=== PATIENT | female | born 1940 | race Caucasian/White ===

== ENCOUNTER 2018-01-07 11:48 | Day surgery (SDC) | payer MEDICARE, MEDICAID ==
[~2018-01-07] VITALS: Ht 154.9 cm; Wt 53.2 kg
--- NOTE | ~2018-01-07 | OP ---
PATIENT NAME: LANCE HALE MEDICAL RECORD: [id number] :40 LOCATION:ELDER ADMISSION DATE: SURGEON: JESSICA LAIRD MD DATE OF OPERATION: 01/07/2018 PROCEDURE: EGD with biopsy. REFERRING PHYSICIAN: Dr. Toan Herring. INDICATIONS: Ms. Hale is a delightful 77-year-old woman who has had symptoms of lower abdominal pain, intermittent diarrhea, and nausea. CT scan of the abdomen and pelvis with contrast 12/09/2017 showed findings suggestive of colitis and possible component of diverticulitis with some hazy increased density surrounding the descending colon and in the distal small bowel there were fluid-filled loops that were in the upper normal to mildly dilated. Her last colonoscopy was in July 2011 and showed moderate sigmoid diverticulosis and internal hemorrhoids. Her last EGD was June 2011 that shows small hiatal hernia, mild gastritis. She presents for outpatient EGD. PREMEDICATIONS: Total IV anesthesia (propofol 120 mg). INSTRUMENT: Olympus video gastroscope. PROCEDURE AND FINDINGS: After receiving informed consent, Ms. Hale's posterior pharynx was anesthetized with Cetacaine spray. She was placed in left lateral decubitus position, sedated as per anesthesia. After achieving an adequate level of sedation, gastroscope was introduced per orally and advanced in the duodenum without difficulty. The esophageal mucosa was without erythema, ulcers, strictures, masses, appeared normal to the GE junction. Small hiatal hernia was present. There was a fair amount of bilious fluid in the stomach, particularly in the prepyloric and antral region of the stomach. Frequent gastric peristaltic activity was noted. There was moderate patchy erythema in the antrum and prepyloric region and antral biopsies were obtained to rule out Helicobacter pylori. There were a few small polyps in the body of the stomach measuring 0.3 cm in size, which were biopsied. No lesions were seen in the cardia or fundus. Pylorus was patent and competent. Duodenal mucosa was without erythema or ulcers, appeared normal to the second portion. Biopsies were taken from the second portion of duodenum to rule out celiac disease. Gastroscope was then withdrawn. Ms. Hale tolerated the procedure well, no immediate complications. ASSESSMENT: 1. Small hiatal hernia. 2. Bilious gastritis. RECOMMENDATIONS: 1. Follow up histopathology. 2. Continue Dexilant 60 mg daily. 3. Would avoid trial of Carafate secondary to SULFA ALLERGY. 4. Colonoscopy as scheduled in January 2018. TRANSINT:[id number] Voice Confirmation ID: [id number] DOCUMENT ID: [id number] OPERATIVE REPORT [id number] LANCE HALE TERRI MD at 1254 CC: TOAN HERRING [id number] DICTATION DATE: 01/07/18 1448 UNIT DIRECTOR: 01/07/18 1520 [facility] 01/07/[address] [address]
[2018-01-07 12:19] LABS: HEMATOCRIT 30.3 % (36.0-48.0); HEMOGLOBIN 9.7 g/dL (12-16); MCV 87.6 fL (80.0-100.0); RBC 3.46 10x6/uL (4.00-5.40); WBC 6.8 10x3/uL (4.8-10.8)
[2018-01-07 12:57] LABS: ANION GAP 8.3 mmol/L (8-16); CARBON DIOXIDE 35.5 mmol/L (21.0-32.0); CREATININE - SERUM 1.9 mg/dL (0.6-1.3); POTASSIUM - SERUM 3.8 mmol/L (3.5-5.1)
[2018-01-07] MEDS ORDERED: LIPITOR20 MG PO (13:17)
[2018-01-07] MEDS ORDERED: COREG25 MG PO (13:17)
[2018-01-07] MEDS ORDERED: DEXILANT60 MG PO (13:18)
[2018-01-07] MEDS ORDERED: XALATAN 0.0052.5 ML (13:19)
[2018-01-07] MEDS ORDERED: PROCRIT/EP40000 UNIT SQ (13:19)
[2018-01-07] MEDS ORDERED: FUROSEMIDE20 MG PO (13:20)
[2018-01-07] MEDS ORDERED: HYDRALAZINE HC100 MG PO (13:21)
[2018-01-07] MEDS ORDERED: LEVO-T50 MCG PO (13:22)
[2018-01-07] MEDS ORDERED: PLAVIX75 MG PO (13:22)
[2018-01-07] MEDS ORDERED: TERAZOSIN HCL2 MG PO (13:23)
[2018-01-07] MEDS ORDERED: ULORIC40 MG PO (13:23)
[2018-01-07] MEDS ORDERED: AVAPRO150 MG PO (13:24)
[2018-01-07 13:31] VITALS: BP 198/75; Ht 154.9 cm; Wt 53.2 kg
== END 2018-01-07 15:45 | disposition home or self-care (01) ==
LOC: D.OPS 11:48
PROVIDERS: Anesthesiology
DX: R11.0 Nausea (principal); R10.30 Lower abdominal pain, unspecified; K21.0 Gastro-esophageal reflux disease with esophagitis

== ENCOUNTER 2018-02-20 10:54 | Day surgery (SDC) | payer MEDICARE, MEDICAID ==
[~2018-02-20] VITALS: Ht 154.9 cm; Wt 56.8 kg
--- NOTE | ~2018-02-20 | OP ---
PATIENT NAME: LANCE HALE MEDICAL RECORD: [id number] :40 LOCATION:ELDER ADMISSION DATE: SURGEON: JESSICA LAIRD MD DATE OF OPERATION: 02/20/2018 PROCEDURE: Colonoscopy with biopsy. INDICATIONS: Ms. Hale is a 77-year-old woman with history of diabetes, hypertension, and stage IV kidney disease, who presents for further evaluation of lower abdominal pain which started in February 2017. Typically, she will have a bowel movement every 1-2 days with some intermittent diarrhea. She had an EGD on 01/07/2018 that shows small hiatal hernia and bilious gastritis. Gastric biopsies were negative for H. pylori and duodenal biopsy showed no significant pathologic changes. Her last colonoscopy was in 07/31/2011 that showed moderate sigmoid diverticulosis and mild internal hemorrhoids. She has a history of iron-deficiency anemia and has been followed by Dr. Dejesus. She presents for outpatient colonoscopy. PREMEDICATIONS: Total IV anesthesia. INSTRUMENTS: Olympus video colonoscope pediatric and Olympus [id number]. PREMEDICATION: Propofol 500 mg (history of stage IV kidney disease). PROCEDURE AND FINDINGS: After informed consent, Ms. Hale was placed in left lateral decubitus position and she was sedated as per anesthesia. After achieving adequate level of sedation, digital rectal exam was performed that showed few external hemorrhoids, nonthrombosed. No fissures or fistulas. Normal sphincter tone. No palpable rectal masses. Colonoscope was introduced per rectally and advanced into the distal sigmoid colon. Secondary to the acute angle in the distal sigmoid colon, I was unable to advance the colonoscope further. The colonoscope was withdrawn and the EGD scope was used and advanced successfully to the sigmoid colon through to the cecum. The cecum, IC valve, and appendiceal orifice were identified and appeared normal. As the gastroscope was withdrawn, careful inspection was made of graves of the colon. Overall mucosa had a normal vascular and fold pattern. There was mild patchy erythema in the ascending colon. Biopsies were obtained to rule out microscopic colitis. There were multiple diverticula seen in the sigmoid colon of mixed sizes, some containing stool. Stool was collected from the colon for studies. Retroflexion in the rectum showed mild internal hemorrhoids. A [id number] prep was present. Ms. Hale tolerated the procedure well. No immediate complications. ASSESSMENT: 1. [id number] sigmoid diverticulosis. 2. Minimal nonspecific erythema involving ascending colon. Rule out microscopic colitis. 3. Mild internal hemorrhoids. 4. Lower abdominal pain, may be secondary to diverticular disease. RECOMMENDATIONS: 1. Follow up histopathology. 2. Daily Benefiber or Metamucil. 3. Colonoscopy as needed. 4. Stool to be sent for xTAG studies. OPERATIVE REPORT [id number] LANCE HALE TRANSINT:[id number] Voice Confirmation ID: [id number] DOCUMENT ID: [id number] JESSICA LIARD MD at 2003 CC: CARLOS DEJESUS MD [id number] DICTATION DATE: 02/20/18 1403 FACING CUTTING MACHINE OPERATOR: 02/20/18 1542 [facility] 02/20/18 [id number] [place] [address]
[~2018-02-20 10:54] MED LIST: AVAPRO150 MG PO; COREG25 MG PO; DEXILANT60 MG PO; FUROSEMIDE20 MG PO; HYDRALAZINE HC100 MG PO; LEVO-T50 MCG PO; LIPITOR20 MG PO; PLAVIX75 MG PO; PROCRIT/EP40000 UNIT SQ; TERAZOSIN HCL2 MG PO; ULORIC40 MG PO; XALATAN 0.0052.5 ML
[2018-02-20 11:14] LABS: BASOPHILS 0.7 % (0-2); EOSINOPHILS 1.2 % (0-7); HEMATOCRIT 30.2 % (36.0-48.0); IMMATURE GRANULOCYTES 0.2 % (0-5); MCH 30.7 pg (26.0-34.0); MCHC 33.1 g/dL (31.0-37.0); MCV 92.6 fL (80.0-100.0); MONOCYTES 4.6 % (2-11); NEUTROPHILS 67.3 % (40-80); PLATELET COUNT 158 10x3/uL (130-400); RBC 3.26 10x6/uL (4.00-5.40); WBC 4.2 10x3/uL (4.8-10.8)
[2018-02-20 11:33] LABS: ALBUMIN 3.8 g/dL (3.4-5.0); ANION GAP 12.4 mmol/L (8-16); BILIRUBIN - TOTAL 0.81 mg/dL (0.2-1.3); CALCIUM 9.3 mg/dL (8.5-10.1); CARBON DIOXIDE 30.4 mmol/L (21.0-32.0); CREATININE - SERUM 1.8 mg/dL (0.6-1.3); POTASSIUM - SERUM 3.8 mmol/L (3.5-5.1); PROTEIN - SERUM 7.2 g/dL (6.4-8.2)
[2018-02-20] MEDS ORDERED: COMBIGAN OPHT DR5 ML EACH EYE (11:52)
[2018-02-20 12:03] VITALS: BP 173/54; Ht 154.9 cm; Wt 56.8 kg
== END 2018-02-20 15:10 | disposition home or self-care (01) ==
LOC: D.OPS 10:54
PROVIDERS: Internal Medicine Gastroenterology
DX: K57.30 Diverticulosis of large intestine without perforation or abscess without bleeding (principal); K64.8 Other hemorrhoids; K52.9 Noninfective gastroenteritis and colitis, unspecified; E11.22 Type 2 diabetes mellitus with diabetic chronic kidney disease; I12.9 Hypertensive chronic kidney disease with stage 1 through stage 4 chronic kidney disease, or unspecified chronic kidney disease; N18.4 Chronic kidney disease, stage 4 (severe); Z01.812 Encounter for preprocedural laboratory examination

== ENCOUNTER → 2020-08-26 18:27 | Outpatient (CLI) | payer MEDICARE, MEDICAID ==
[2018-02-20 12:03] VITALS: BMI 23.6
[~2020-08-26 18:27] MED LIST changes: +ALBUTEROL SULF8.5 GM INH; +ASPIRIN EC325 MG PO; +CARDURA4 MG PO; +CLONIDINE1 EAC2 TOPICAL; +COMBIGAN OPHT DR5 ML EACH EYE; +FLORASTOR250 MG PO; +FLUTICASONE PRO16 GM NASAL; +FOLIC ACID1 MG PO; +HYDROCHLOROTHIA50 MG PO; +METHOTREXATE2.5 MG PO; +MIDAMOR5 MG PO; +MIRALAX17 GM PO; +MYLANTA / MAALO30 ML PO; +NORMODYNE / TR100 MG PO; +ROCALTROL0.25 MCG PO; +SINGULAIR10 MG PO; +ULORIC80 MG PO; +ULTRAM50 MG PO; +XALATAN 0.0052.5 ML EACH EYE
[2020-08-26 19:14] LABS: BASOPHILS 0.6 % (0-2); EOSINOPHILS 0.2 % (0-7); HEMATOCRIT 28.4 % (36.0-48.0); HEMOGLOBIN 9.2 g/dL (12-16); LYMPHOCYTES 17.6 % (15-50); MCH 29.5 pg (26.0-34.0); MCHC 32.3 g/dL (31.0-37.0); MCV 91.1 fL (80.0-100.0); MEAN PLATELET VOLUME 8.5 fL (7.4-10.4); MONOCYTES 8.7 % (2-11); NEUTROPHILS 72.9 % (40-80); RBC 3.11 10x6/uL (4.00-5.40); RDW 19.4 % (11.5-14.5)
[2020-08-26 19:16] LABS: PLATELET COUNT 254 10x3/uL (130-400)
[2020-08-26 20:00] LABS: ALBUMIN 1.7 g/dL (3.4-5.0); ANION GAP 11.8 mmol/L (8-16); BILIRUBIN - TOTAL 0.25 mg/dL (0.2-1.3); CALCIUM 7.7 mg/dL (8.5-10.1); CARBON DIOXIDE 26.8 mmol/L (21.0-32.0); CREATININE - SERUM 2.1 mg/dL (0.6-1.3); LDL-HDL RATIO 2.3 ratio (1.5-3.5); PROTEIN - SERUM 6.6 g/dL (6.4-8.2); THYROID STIMULATING HORMONE 9.48 uIU/mL (0.36-3.74)
[2020-08-26 20:11] LABS: POTASSIUM - SERUM 6.6 mmol/L (3.5-5.1)
== END | disposition home or self-care (01) ==
LOC: D.LABREF 18:27
PROVIDERS: ATTEND Family Medicine
DX: E11.29 Type 2 diabetes mellitus with other diabetic kidney complication (principal); D64.9 Anemia, unspecified; I10 Essential (primary) hypertension; E03.9 Hypothyroidism, unspecified

== ENCOUNTER 2020-08-26 21:52 | Inpatient (IN) | payer MEDICARE, MEDICAID ==
[~2020-08-26] VITALS: Ht 154.9 cm; Wt 63.0 kg
[~2020-08-26 21:52] MED LIST changes: -ALBUTEROL SULF8.5 GM INH; -ASPIRIN EC325 MG PO; -CARDURA4 MG PO; -CLONIDINE1 EAC2 TOPICAL; -FLORASTOR250 MG PO; -FLUTICASONE PRO16 GM NASAL; -FOLIC ACID1 MG PO; -HYDROCHLOROTHIA50 MG PO; -METHOTREXATE2.5 MG PO; -MIDAMOR5 MG PO; -MIRALAX17 GM PO; -MYLANTA / MAALO30 ML PO; -NORMODYNE / TR100 MG PO; -ROCALTROL0.25 MCG PO; -SINGULAIR10 MG PO; -ULORIC80 MG PO; -ULTRAM50 MG PO; -XALATAN 0.0052.5 ML EACH EYE
[2020-08-26 22:46] LABS: BASOPHILS 0.4 % (0-2); EOSINOPHILS 0.1 % (0-7); HEMATOCRIT 26.1 % (36.0-48.0); HEMOGLOBIN 8.7 g/dL (12-16); LYMPHOCYTES 18.2 % (15-50); MCH 30.1 pg (26.0-34.0); MCHC 33.2 g/dL (31.0-37.0); MCV 90.5 fL (80.0-100.0); MEAN PLATELET VOLUME 7.6 fL (7.4-10.4); MONOCYTES 9.7 % (2-11); NEUTROPHILS 71.6 % (40-80); PLATELET COUNT 262 10x3/uL (130-400); RBC 2.88 10x6/uL (4.00-5.40); RDW 19.2 % (11.5-14.5); WBC 9.9 10x3/uL (4.8-10.8)
[2020-08-26 23:00] LABS: ALBUMIN 1.6 g/dL (3.4-5.0); BILIRUBIN - TOTAL 0.42 mg/dL (0.2-1.3); CALCIUM 7.9 mg/dL (8.5-10.1); CARBON DIOXIDE 26.9 mmol/L (21.0-32.0); CREATININE - SERUM 2.1 mg/dL (0.6-1.3); PROTEIN - SERUM 6.6 g/dL (6.4-8.2)
[2020-08-26 23:01] LABS: ANION GAP 9.4 mmol/L (8-16); POTASSIUM - SERUM 6.3 mmol/L (3.5-5.1)
[2020-08-27] MEDS ORDERED: ALBUTEROL SULF8.5 GM INH (02:02)
[2020-08-27] MEDS ORDERED: MIDAMOR5 MG PO (02:06)
[2020-08-27] MEDS ORDERED: ASPIRIN EC325 MG PO (02:09)
[2020-08-27] MEDS ORDERED: ROCALTROL0.25 MCG PO (02:13)
[2020-08-27] MEDS ORDERED: CLONIDINE1 EAC2 TOPICAL (02:18)
[2020-08-27] MEDS ORDERED: CARDURA4 MG PO (02:21)
[2020-08-27] MEDS ORDERED: FLUTICASONE PRO16 GM NASAL (02:23)
[2020-08-27] MEDS ORDERED: FLORASTOR250 MG PO (02:24)
[2020-08-27] MEDS ORDERED: FOLIC ACID1 MG PO (02:28)
[2020-08-27] MEDS ORDERED: HYDROCHLOROTHIA50 MG PO (03:26)
[2020-08-27] MEDS ORDERED: NORMODYNE / TR100 MG PO (03:26)
[2020-08-27] MEDS ORDERED: METHOTREXATE2.5 MG PO (03:30)
[2020-08-27] MEDS ORDERED: SINGULAIR10 MG PO (03:31)
[2020-08-27] MEDS ORDERED: MYLANTA / MAALO30 ML PO (03:32)
[2020-08-27] MEDS ORDERED: MIRALAX17 GM PO (03:33)
[2020-08-27] MEDS ORDERED: ULTRAM50 MG PO (03:35)
[2020-08-27] MEDS ORDERED: XALATAN 0.0052.5 ML EACH EYE (03:36)
[2020-08-27] MEDS ORDERED: ULORIC80 MG PO (03:36)
[2020-08-27 05:21] VITALS: BP 170/60
[2020-08-27 06:19] VITALS: BP 170/60; BMI 26.3
[2020-08-27 06:22] LABS: BASOPHILS 0.6 % (0-2); EOSINOPHILS 0.1 % (0-7); HEMATOCRIT 25.5 % (36.0-48.0); HEMOGLOBIN 8.5 g/dL (12-16); LYMPHOCYTES 19.8 % (15-50); MCH 30.3 pg (26.0-34.0); MCHC 33.4 g/dL (31.0-37.0); MCV 90.8 fL (80.0-100.0); MEAN PLATELET VOLUME 7.8 fL (7.4-10.4); MONOCYTES 10.3 % (2-11); NEUTROPHILS 69.2 % (40-80); PLATELET COUNT 264 10x3/uL (130-400); RDW 18.7 % (11.5-14.5); WBC 8.6 10x3/uL (4.8-10.8)
[2020-08-27 06:43] LABS: CALCIUM 8.2 mg/dL (8.5-10.1); CARBON DIOXIDE 25.5 mmol/L (21.0-32.0); CHLORIDE - SERUM 102 mmol/L (98-107); CKMB 0.2 U/L (0.0-3.6); CREATINE KINASE 9 UL (21-215); CREATININE - SERUM 2.1 mg/dL (0.6-1.3); MAGNESIUM - SERUM 1.4 mg/dL (1.8-2.4); PHOSPHOROUS 3.9 mg/dL (2.5-4.9); SODIUM 132 mmol/L (136-145); UREA NITROGEN 65 mg/dL (7-18); eGFR NON AFRICAN AMERICAN 24 mL/min (90-120)
[2020-08-27 07:12] LABS: CALC OSMOLALITY 281 mosm/kg (275-300); GLUCOSE 63 mg/dL (74-106); POTASSIUM - SERUM 6.2 mmol/L (3.5-5.1)
--- NOTE | 2020-08-27 08:09 | NUR ---
650MG OF TYLENOL GIVEN FOR PAIN LEVEL OF 10/10. PT A/O X3. RESP EVEN AND NONLABORED ON RA. RT UPPER ARM IV SL. SR-68 ON TELE. PT DENIES ANY OTHER NEEDS AT THIS TIME. CALL LIGHT IN REACH, WILL CONTINUE PLAN OF CARE.
[2020-08-27 08:38] VITALS: BP 170/61
[2020-08-27 12:03] VITALS: BP 121/50
[2020-08-27 14:34] LABS: ANION GAP 7.6 mmol/L (8-16); CALCIUM 8.2 mg/dL (8.5-10.1); CARBON DIOXIDE 26.6 mmol/L (21.0-32.0); CREATININE - SERUM 2.2 mg/dL (0.6-1.3)
[2020-08-27 14:43] LABS: POTASSIUM - SERUM 6.2 mmol/L (3.5-5.1)
--- NOTE | 2020-08-27 15:31 | NUR ---
CALLED CHANEL HOOD REGARDING K OF 6.2, NEW ORDER TO GIVE 10G OF LOKELMA ONE TIME DOSE AND RECHECK PT'S K IN 4HRS.
[2020-08-27 16:04] VITALS: BP 120/59
--- NOTE | 2020-08-27 16:04 | NUR ---
CLEANED PT UP FROM BM INCONT EPISODE. PT CRYING OUT THAT SHE IS IN PAIN TO ABD AND BACK. ONLY HAS TYLENOL AND ITS NOT HELPING. EVERY TIME PT IS REPOSITIONED IN THE BED SHE CRIES OUT IN PAIN. PT'S DAUGHTER STATES THAT SHE WAS GETTING MOPRHINE AND TRAMADOL AT THE RETIREMENT FOR PAIN. WILL PAGE DR. BARRIOS TO SEE IF PT CAN HAVE ANYTHING STRONGER.
--- NOTE | 2020-08-27 17:45 | NUR ---
WENT TO TRY TO DO IN/OUT CATH ON PT. PT HAD ALREADY GONE AND ALSO HAD BM. CLEANED PT UP FROM INCONT EPISODE, WILL PASS ON IN REPORT THAT STILL NEED URINE SAMPLE. REPOSITIONED PT IN BED, PT DENIES ANY OTHER NEEDS AT THIS TIME. CALL LIGHT IN REACH.
--- NOTE | 2020-08-27 19:46 | NUR ---
RECEIVED REPORT, WILL ASSUME CARE OF PT, PREACHER IN ROOM READING SCRIP TO PT, DENIES ANY NEEDS AT THIS TIME, BED IS LOW, SRX2, CALL LIGHT IN REACH, WILL CONTINUE PLAN OF CARE
[2020-08-27 20:00] VITALS: BP 143/57
--- NOTE | 2020-08-27 21:45 | NUR ---
PAGED CHANEL NAGEL TO LET HER KNOW K+6.0, WAITING ROADS SUPERVISOR BACK
--- NOTE | 2020-08-28 03:28 | NUR ---
I have reviewed this patient and I concur with the Shift Assessment completed by the Licensed Practical Nurse today this shift.
[2020-08-28 06:28] LABS: BASOPHILS 0.4 % (0-2); EOSINOPHILS 0.4 % (0-7); HEMATOCRIT 24.4 % (36.0-48.0); HEMOGLOBIN 8.1 g/dL (12-16); LYMPHOCYTES 21.6 % (15-50); MCHC 33.1 g/dL (31.0-37.0); MCV 90.7 fL (80.0-100.0); MEAN PLATELET VOLUME 7.9 fL (7.4-10.4); NEUTROPHILS 67.6 % (40-80); PLATELET COUNT 255 10x3/uL (130-400); RBC 2.69 10x6/uL (4.00-5.40); WBC 8.3 10x3/uL (4.8-10.8)
[2020-08-28 06:50] LABS: ANION GAP 10.7 mmol/L (8-16); CALCIUM 8.2 mg/dL (8.5-10.1); CARBON DIOXIDE 25.3 mmol/L (21.0-32.0); CREATININE - SERUM 2.3 mg/dL (0.6-1.3)
[2020-08-28 08:13] VITALS: BP 195/82
--- NOTE | 2020-08-28 10:50 | NUR ---
CLEANED PT UP FROM INCONT EPISODE. RESPOSITIONED PT IN BED, ALL NEEDS MET, CALL LIGHT IN REACH.
[2020-08-28 12:00] VITALS: BP 176/72
[2020-08-28 13:02] VITALS: BP 191/72
--- NOTE | 2020-08-28 15:09 | NUR ---
ULTRAM GIVEN FOR PAIN LEVEL OF 10/10. PT DENIES ANY OTHER NEEDS AT THIS TIME. CALL LIGHT IN REACH.
[2020-08-28 16:00] VITALS: BP 123/69
--- NOTE | 2020-08-28 16:30 | NUR ---
PT'S QUINN WANTED TO SPEAK WITH THIS NURSE, WHEN OVER PLAN OF CARE WITH HER. PT'S QUINN VERY UPSET BECAUSE THIS NURSE DOES NOT HAVE THE RECORDS FROM [facility] FROM PT'S LAST ADMISSION THERE. EXPLAINED TO HER THAT THE DOCTOR WOULD HAVE TO REQUEST FOR THE MEDICAL RECORDS FROM [facility] IF HE FELT LIKE HE NEEDED TO SEE THEM. EXPLAINED TO HER THAT DR. NELSON WAS THE RENAL DOCTOR THAT WAS SEEING PT AT [facility] LAST WEEK, THAT HE IS AWARE OF WHAT MEDICATIONS THE PT WAS TAKING. QUINN IS ALSO WOUNDERING WHY THE DOCTORS HAVE NOT STARTED PT ON THE MEDICATIONS THAT SHE WAS GETTING AT [facility] THAT WERE WORKING TO CONTROL HER BLOOD PRESSURE AND K LEVELS. TRIED TO EXPLAINED TO HER THAT THE RENAL DOCTOR HAS MADE SOME CHANGES TO THE PT'S MEDICATIONS BECAUSE OF HER NOW HIGH K AND HIGH BP. QUINN STARTED HOLLERING STATING THAT SHE IS VERY UPSET THAT ITS SO HARD TO GET MEDICAL RECORDS FROM [facility]. PT ALSO STATING THAT WHEN SHE WALKED IN TO HER GRANDMOTHERS ROOM THAT PT WAS STARING INTO SPACE DID NOT EVEN ACKNOWLEGED THAT SHE WAS IN THE ROOM. THAT PT HAD ALSO BEEN LAYING IN PEE FOR GOD KNOWS HOW LONG. EXPLAINED TO HER THAT THIS NURSE AND SHEETMETAL PATTERNMAKER HAVE BEEN CHECKING ON PT OFTEN AND THAT PT IS ALSO GETTING A DIURETIC SO SHE IS CONSTANTLY URINATING AND STAFF HAS CLEANED HER UP MULTIPLE TIMES TODAY. AFTER I TRIED TO EXPLAINED MULTIPLE TIMES THE PLAN OF CARE AND WHY WE DONT HAVE THE RECORDS FROM [facility], PT'S QUINN WALKED OFF AND WENT BACK TO PT'S ROOM. THEN CAME BACK OUT, ASKING WHEN WAS THE LAST TIME THAT PT HAD A SHOWER. CON PEREZ TO EXPLAINED TO PT'S DAUGHTER THAT HER AND THE OTHER SHEETMETAL PATTERNMAKER HAD JUST CLEANED PT UP FROM INCONT EPISODE AND GAVE HER A COMPLETE BED BATH AND LINEN CHANGE. THEN QUINN STATED "NO, WHEN WAS THE LAST TIME THAT SHE HAD AN ACTUAL SHOWER, EXPLAINED TO HER THAT THE STAFF HAS NOT GOTTEN PT UP BECAUSE PT IS TOO WEAK AND C/O PAIN EVERYWHERE ANY TIME SHE IS MOVED. EXPLAINED TO HER THAT PHYSICAL THERAPY ASSESSED HER TODAY AND WILL START WORKING WITH HER TOMORROW AND THEN WE WILL SEE HOW SHE DOES AND CAN GET HER IN THE SHOWER IF WE FEEL LIKE IS SAVE. THEN GRANDDAUGHTER WENT TO SAY " SO YALL JUST MAKE PT'S BEDRIDEN AND MAKE THEM WEAKER. STATED THAT SHE WAS GOING TO FILE A COMPLAINT. AFTER THAT THIS NURSE AND SHEETMETAL PATTERNMAKER WENT INTO PT'S ROOM TO TRY AND GET HER INTO THE SHOWER AND GOT PT ALL THE WAY TO THE SHOWER AND PT WAS TO WEAK TO MAKE IT ALL THE WAY IN THE SHOWER OR BACK TO BE. HAD TO GET HELP TO LIFT PT BACK TO BED X3 ASSIST.
[2020-08-28 20:00] VITALS: BP 159/58
[2020-08-29 00:13] VITALS: BP 180/64
[2020-08-29 04:00] VITALS: BP 167/75
[2020-08-29 06:45] LABS: BASOPHILS 0.6 % (0-2); EOSINOPHILS 0.4 % (0-7); HEMATOCRIT 23.4 % (36.0-48.0); HEMOGLOBIN 7.8 g/dL (12-16); LYMPHOCYTES 26.9 % (15-50); MCH 30.2 pg (26.0-34.0); MCHC 33.4 g/dL (31.0-37.0); MCV 90.6 fL (80.0-100.0); MEAN PLATELET VOLUME 7.7 fL (7.4-10.4); MONOCYTES 10.9 % (2-11); NEUTROPHILS 61.2 % (40-80); PLATELET COUNT 272 10x3/uL (130-400); RBC 2.59 10x6/uL (4.00-5.40); RDW 18.9 % (11.5-14.5)
[2020-08-29 06:53] LABS: INR 1.18 (0.85-1.17); PROTIME 13.9 SECONDS (11.6-15.0)
[2020-08-29 07:06] LABS: ALBUMIN 1.6 g/dL (3.4-5.0); ANION GAP 10.3 mmol/L (8-16); BILIRUBIN - DIRECT 0.14 mg/dL (0.00-0.30); BILIRUBIN - INDIRECT 0.27 mg/dL (0.00-1.00); BILIRUBIN - TOTAL 0.41 mg/dL (0.2-1.3); CALCIUM 8.2 mg/dL (8.5-10.1); CARBON DIOXIDE 27.5 mmol/L (21.0-32.0); CREATININE - SERUM 2.2 mg/dL (0.6-1.3); POTASSIUM - SERUM 5.8 mmol/L (3.5-5.1); PROTEIN - SERUM 6.7 g/dL (6.4-8.2)
--- NOTE | 2020-08-29 09:28 | NUR ---
AM MEDS GIVEN AT THIS TIME. PT A/O X3, RESP EVEN AND NONLABORED ON RA. DENIES ANY PAIN AT THIS TIME. CHECKED PT FOR ANY INCONT EPISODES, PT WAS DRY. PUREWICK IN PLACED, EMPTIED 600CC OF YELLOW URINE. SCDS REMOVED AND ACCESSED PT LEGS. REPOSITIONED PT IN BED, ALSO ASKED PT WHAT SHE WATED TO EAT FOR BREAKFAST SINCE SHE HAD NOT TOUCHED HER EGGS, SAUSAGE, PANCAKE THAT SHE WAS SERVED. PT STATED OATMEAL AND TOAST. PUT ORDER IN. PT DENIES ANY OTHER NEED AT THIS TIME. CALL LIGHT IN REACH, WILL CONTINUE PLAN OF CARE.
--- NOTE | 2020-08-29 09:55 | NUR ---
GAVE 50MG OF TRAMADOL FOR PAIN LEVEL OF 10/10. ALSO REPOSITIONED PT IN BED, REMOVED SCDS AT THIS TIME. PT C/O PAIN TO LEGS. CHECKED FOR ANY INCONT EPISODES, PT COMPLETELY DRIED, PUREWICK IN PLACE. CALL LIGHT IN REACH.
--- NOTE | 2020-08-29 10:38 | NUR ---
MEPELEX DRESSING APPLIED TO COCCYX. REPOSITIONED PT TO LT SIDE. DOES NOT LIKE TO BE ON RIGHT SIDE, STATES IT MAKES BUT HURT MORE WHEN SHE LAYS ON HER RIGHT SIDE. ALL NEEDS MET, CALL LIGHT IN REACH.
[2020-08-29 11:07] LABS: CREATININE - URINE 14.1 mg/dL (30-125); PRO/CRE RATIO URINE 2.3 mg/g
[2020-08-29 11:13] LABS: BILIRUBIN NEGATIVE (NEGATIVE); KETONE NEGATIVE (NEGATIVE); NITRITE NEGATIVE (NEGATIVE); SQUAMOUS EPITHELIAL RARE HPF (0-4); UROBILINOGEN NORMAL mg/dL (< 2); WHITE CELLS - URINE 0-5 HPF (0-4)
[2020-08-29 12:50] VITALS: BP 162/61
--- NOTE | 2020-08-29 14:24 | NUR ---
RT UPPER ARM IV, LEAKING WHEN FLUSHED. D/C WITH CATHETER TIP INTACT. NEW 22G STARTED TO RT WRIST X2 STICKS, PT TOLERARED WELL, ALSO GAVE 650MG OF TYLENOL FOR PAIN LEVEL OF 10/10. PT'S PADS DRY NO INCONT EPISODE NOTED, PUREWICK IN PLACE. CALL LIGHT IN REACH.
--- NOTE | 2020-08-29 15:49 | NUR ---
CALLED ANGIE GENAO AND INFORMED HER THAT DR. BARRIOS WANTED TO KNOW IF THE WANTED PT GET TRANFUSION FOR HGB OF 7.8. PER ANGIE GENAO ROOFER HELPER NOT TODAY CHECK IRON LEVELS, TIBC PANEL, FERRITIN, FOLATE, AND B-12. ALSO ORDER FOR PROCRIT 8000UNITS SUB Q48HRS.
--- NOTE | 2020-08-29 16:10 | NUR ---
50MG OF TRAMADOL GIVEN FOR PAIN LEVEL OF 10/10. TALKED TO PT'S SISTER AND UPDATED HER ON PT'S CONDITION. PT DENIES ANY OTHER NEEDS AT THIS TIME. CALL LIGHT IN REACH.
[2020-08-29 16:18] VITALS: BP 182/67
--- NOTE | 2020-08-29 18:29 | NUR ---
CHECKED PT FOR INCONT EPISODE, PT IS DRY, PUREWICK IN PLACE, REPOSITIONED PT IN BED, PT STILL REFUSING TO EAT HER DINNER, LEFT TRAY ON BEDSIDE TABLE JUST IN CASE PT WANTS TO EAT LATER ON. CALL LIGHT IN REACH.
[2020-08-29 20:00] VITALS: BP 149/60
[2020-08-30] VITALS: BP 130/55
--- NOTE | 2020-08-30 03:17 | NUR ---
I have reviewed this patient and I concur with the Shift Assessment completed by the Licensed Practical Nurse today this shift.
[2020-08-30 04:00] VITALS: BP 147/60
[2020-08-30 06:29] LABS: BASOPHILS 0.8 % (0-2); EOSINOPHILS 0.3 % (0-7); HEMATOCRIT 24.4 % (36.0-48.0); LYMPHOCYTES 24.5 % (15-50); MCH 29.8 pg (26.0-34.0); MCHC 32.9 g/dL (31.0-37.0); MCV 90.6 fL (80.0-100.0); MEAN PLATELET VOLUME 7.5 fL (7.4-10.4); MONOCYTES 9.5 % (2-11); NEUTROPHILS 64.9 % (40-80); PLATELET COUNT 309 10x3/uL (130-400); RBC 2.69 10x6/uL (4.00-5.40); RDW 18.5 % (11.5-14.5); WBC 8.3 10x3/uL (4.8-10.8)
[2020-08-30 06:53] LABS: % SATURATION 16 % (15-55); IRON 12 ug/dl (35-150); TOTAL IRON BIND CAPACITY 73 ug/dl (260-445); UNSAT IRON BIND CAPACITY 61 ug/dl (150-375)
[2020-08-30 07:09] LABS: CALC OSMOLALITY 283 mosm/kg (275-300); CALCIUM 8.2 mg/dL (8.5-10.1); CARBON DIOXIDE 29.9 mmol/L (21.0-32.0); CHLORIDE - SERUM 98 mmol/L (98-107); CREATININE - SERUM 2.5 mg/dL (0.6-1.3); FERRITIN 458 ng/mL (3-244); GLUCOSE 93 mg/dL (74-106); POTASSIUM - SERUM 4.8 mmol/L (3.5-5.1); SODIUM 133 mmol/L (136-145); UREA NITROGEN 63 mg/dL (7-18); eGFR NON AFRICAN AMERICAN 20 mL/min (90-120)
[2020-08-30 08:14] VITALS: BP 154/67
[2020-08-30 11:37] VITALS: BP 125/57
[2020-08-30 12:41] VITALS: Ht 154.9 cm; Wt 63.0 kg
--- NOTE | 2020-08-30 15:52 | NUR ---
DR BARRIOS NOTIFIED OF BRUCED AND SWOLLEN ANKLE. X-RAY ORDERED. DR BARRIOS ALSO NOTIFIED THAT HER SISTER RHONDA WANTS TO SPEAK TO HIM. PHONE # [phone].
[2020-08-30 16:00] VITALS: BP 131/53
--- NOTE | 2020-08-30 19:50 | NUR ---
CAREGIVER AT BED SIDE, HAS MULTIPLE QUESTIONS IN REGARDS TO PTS CONDITION AND CARE. CAREGIVER ON PHONE WITH PTS DAUGHTER WELL. CAREGIVER ASKS WHY PT WAS NOT ADMITTED TO [facility] WHEN THAT IS WHERE PT HAD,HAD HER ABD SURGERY, EXPLAINED THAT I DO NOT HAVE THAT ANSWER FOR HER, THAT DECISION WAS MADE BY ANDREW BUNDY OR THE BACK ROLLER. PT COMPLAINS OF PAIN TO HER BACK AND HIPS, PTS FAMILY ON PHONE ASKS IF PT HAS FALLEN, THIS NURSE INFORMED FAMILY THAT TO MY KNOWLEDGE AND THE NURSE FROM PREVIOUS [facility] DAY [facility]IF[facility] WERE INFORMED THAT PT HAD FALLEN PRIOR TO THE ADMIT TO [facility], BUT WERE NOT INFORMED OF WHERE THE FALL HAD HAPPENED. INFORMED FAMILY AND CAREGIVER THAT I WILL SEE IF WE CAN AN XRAY OF PTS HIPS AND PELVIS.
[2020-08-30 20:00] VITALS: BP 154/59
--- NOTE | 2020-08-30 20:25 | NUR ---
BUNCHER OPERATOR AT BED SIDE.
[2020-08-31] VITALS: BP 143/56
--- NOTE | 2020-08-31 00:52 | NUR ---
I have reviewed this patient and I concur with the Shift Assessment completed by the Licensed Practical Nurse today this shift.
--- NOTE | 2020-08-31 01:52 | NUR ---
RESTING WITH EYES CLOSED. RESPERATIONS EVEN, NO S/S DISTRESS NOTED.
[2020-08-31 04:00] VITALS: BP 171/69
[2020-08-31 06:11] LABS: BASOPHILS 0.6 % (0-2); EOSINOPHILS 0.7 % (0-7); LYMPHOCYTES 25.4 % (15-50); MCH 29.8 pg (26.0-34.0); MCHC 33.3 g/dL (31.0-37.0); MCV 89.5 fL (80.0-100.0); MEAN PLATELET VOLUME 7.5 fL (7.4-10.4); MONOCYTES 5.9 % (2-11); NEUTROPHILS 67.4 % (40-80); PLATELET COUNT 316 10x3/uL (130-400); RBC 2.68 10x6/uL (4.00-5.40); RDW 18.6 % (11.5-14.5); WBC 8.4 10x3/uL (4.8-10.8)
[2020-08-31 06:26] LABS: ANION GAP 9.5 mmol/L (8-16); CALCIUM 8.1 mg/dL (8.5-10.1); CARBON DIOXIDE 30.9 mmol/L (21.0-32.0); CREATININE - SERUM 2.6 mg/dL (0.6-1.3); POTASSIUM - SERUM 4.4 mmol/L (3.5-5.1)
[2020-08-31 07:33] VITALS: BP 177/61
[2020-08-31 10:22] VITALS: BP 137/59
[2020-08-31 15:15] VITALS: BP 133/56
[2020-08-31 20:00] VITALS: BP 145/65
[2020-09-01] VITALS: BP 111/40
--- NOTE | 2020-09-01 00:22 | NUR ---
RESTING WITH EYES CLOSED, NO S/S DISTRESS NOTED.
--- NOTE | 2020-09-01 01:32 | NUR ---
I have reviewed this patient and I concur with the Shift Assessment completed by the Licensed Practical Nurse today this shift.
[2020-09-01 05:38] VITALS: BP 150/63
[2020-09-01 07:28] LABS: EOSINOPHILS 0.7 % (0-7); HEMATOCRIT 23.7 % (36.0-48.0); HEMOGLOBIN 7.9 g/dL (12-16); LYMPHOCYTES 28.6 % (15-50); MCH 29.9 pg (26.0-34.0); MCHC 33.4 g/dL (31.0-37.0); MCV 89.5 fL (80.0-100.0); MEAN PLATELET VOLUME 7.5 fL (7.4-10.4); MONOCYTES 4.2 % (2-11); NEUTROPHILS 65.5 % (40-80); PLATELET COUNT 326 10x3/uL (130-400); RBC 2.65 10x6/uL (4.00-5.40); RDW 18.5 % (11.5-14.5); WBC 6.9 10x3/uL (4.8-10.8)
[2020-09-01 07:40] LABS: ANION GAP 10.7 mmol/L (8-16); CREATININE - SERUM 2.5 mg/dL (0.6-1.3); POTASSIUM - SERUM 4.7 mmol/L (3.5-5.1)
[2020-09-01 08:50] VITALS: BP 168/78
[2020-09-01 11:00] VITALS: BP 151/61
--- NOTE | 2020-09-01 13:16 | NUR ---
Nutrition Follow-up: Pt confused. Observed not much breakfast eaten this AM, although noted open Glucerna on tray. Nursing reports stage 3 PU on coccyx. Diet: Renal, Carb Consistent, Mech Soft PO intake: 30% avg x 5 meals (08/29-08/30) No new wt; last wt: 139# (08/30) Labs noted: Na 133, K+ 4.7, BUN 66, Cre 2.5, GFR 20, Glu 86, Ca 8.0 Meds noted: Calcitriol, Protonix, Florastor, Folate, Miralax -Encourage PO intake and honor food preferences within diet restrictions. -+Nepro with meals. -Need new wt. -RD follow-up: 09/05
[2020-09-01 15:30] VITALS: BP 154/65
[2020-09-01 21:34] VITALS: BP 174/71
--- NOTE | 2020-09-02 03:13 | NUR ---
I have reviewed this patient and I concur with the Shift Assessment completed by the Licensed Practical Nurse today this shift.
[2020-09-02 05:11] VITALS: BP 123/65
[2020-09-02 06:59] LABS: BASOPHILS 0.7 % (0-2); EOSINOPHILS 0.8 % (0-7); HEMATOCRIT 23.2 % (36.0-48.0); HEMOGLOBIN 7.7 g/dL (12-16); LYMPHOCYTES 32.9 % (15-50); MCH 29.9 pg (26.0-34.0); MCHC 33.3 g/dL (31.0-37.0); MCV 89.9 fL (80.0-100.0); MEAN PLATELET VOLUME 7.4 fL (7.4-10.4); MONOCYTES 4.4 % (2-11); NEUTROPHILS 61.2 % (40-80); PLATELET COUNT 317 10x3/uL (130-400); RBC 2.58 10x6/uL (4.00-5.40); RDW 18.2 % (11.5-14.5); WBC 6.1 10x3/uL (4.8-10.8)
--- NOTE | 2020-09-02 07:16 | NUR ---
RECEIVED BEDSIDE REPORT PATIENT AWAKE AND CONFUSED. NO SHORTNESS OF BREATH, ON ROOM AIR. IV TO LEFT WRIST SL.
[2020-09-02 07:38] LABS: ANION GAP 10.8 mmol/L (8-16); CALCIUM 8.3 mg/dL (8.5-10.1); CARBON DIOXIDE 28.7 mmol/L (21.0-32.0); CREATININE - SERUM 2.4 mg/dL (0.6-1.3); POTASSIUM - SERUM 4.5 mmol/L (3.5-5.1)
[2020-09-02 07:50] VITALS: BP 157/68
--- NOTE | 2020-09-02 08:30 | NUR ---
PATIENT AWAKE AND ALERT AND CONFUSED. NO CURRENT PAIN OR DISTRESS NOTED AT THIS TIME. RESP EVEN AND UNLABORED ON ROOM AIR SATS AT99. HEART SOUNDS REGULAR RATE AND RYTHYM. ABDOMINAL INCISION HEALED. 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 INCONTINENT OF BOWEL AND BLADDER. APPETITE DECREASED. PATIENT IS FALL RISK.
[2020-09-02 10:55] VITALS: BP 184/71
[2020-09-02] MEDS ORDERED: HYDRALAZINE HCL50 MG PO (12:15)
[2020-09-02] MEDS ORDERED: TORSEMIDE20 MG PO (12:16)
--- NOTE | 2020-09-02 12:38 | NUR ---
I have reviewed this patient and I concur with the Shift Assessment completed by the Licensed Practical Nurse today this shift.
--- NOTE | 2020-09-02 20:00 | NUR ---
INITIAL ROUNDS AND ASSESSMENT COMPLETED. PT HAS JOSUÉ BUT BED IS WET. CARE PROVIDED. LINENS CHANGED. JOSUÉ RESITUATED. PT ALERT/ORIENTED AND INFORMED THAT HER SISTER HAD CALLED AND VERIFIED THAT SHE WAS STILL HERE AT [facility] AND HAS NOT BEEN DISCHARGED TO [facility].
[2020-09-02 21:33] VITALS: BP 170/64
--- NOTE | 2020-09-02 22:02 | NUR ---
BEDTIME MEDS GIVEN. EYE DROPS ADMINISTERED. PUREWICK IN PLACE. CLEAN/DRY. SR UP X 2, BED ALARM IN PLACE.
[2020-09-03 00:06] VITALS: BP 148/63
[2020-09-03 05:07] VITALS: BP 175/61
--- NOTE | 2020-09-03 06:30 | NUR ---
BEDSIDE REPORT RECIEVED. PATIENT RESTING COMFORTABLY, RESP EVEN AND UNLABORED ON ROOM AIR. IV TO LEFT WRIST SALINE LOCKED AND PATENT.
--- NOTE | 2020-09-03 07:21 | NUR ---
PATIENT RESTING EASILY AROUSED, CONFUSED MOSTLY HAS FEW LUCID MOMENTS. NO CURRENT PAIN OR DISTRESS. RESP EVEN AND UNLABORED ON ROOM AIR. SATS 99. LUNG SOUNDS CLEAR, BUT DIMINISHED IN LOWER LOBES. HEART SOUNDS REGULAR RATE AND RYTHYM. ABDOMEN NON TENDER.
[2020-09-03 07:59] VITALS: BP 167/65
[2020-09-03 12:08] VITALS: BP 170/61
[2020-09-03 15:18] VITALS: BP 186/67
[2020-09-03 20:00] VITALS: BP 153/63
[2020-09-04 04:00] VITALS: BP 154/60
--- NOTE | 2020-09-04 06:30 | NUR ---
BEDSIDE REPORT RECIEVED. PATIENT RESTING COMFORTABLY, RESP EVEN AND UNLABORED. NO CURRENT PAIN VERBALIZED. IV TO LEFT FOREARM. PATENT.
--- NOTE | 2020-09-04 07:37 | NUR ---
PATIENT AWAKE AND ALERT WITH SOME CONFUSION. NO CURRENT DISTRESS NOTED. RESP EVEN AND UNLABORED ON ROOM AIR SATS 98. LUNG SOUNDS DIMINISHED IN LOWER LOBES. HEART SOUNDS REGULAR RATE AND RYTHYM. IV TO LEFT WRIST PATENT AND SALINE LOCKED. BOWEL SOUNDS INACTIVE. APPETITE DECREASED WILL DRINK ENSURE.
[2020-09-04 09:13] LABS: BASOPHILS 0.2 % (0-2); HEMATOCRIT 24.2 % (36.0-48.0); HEMOGLOBIN 7.7 g/dL (12-16); IMMATURE GRANULOCYTES 0.3 % (0-5); LYMPHOCYTE ABS# 1.47 10x3/uL (1.18-3.74); LYMPHOCYTES 24.6 % (15-50); MCH 28.8 pg (26.0-34.0); MCHC 31.8 g/dL (31.0-37.0); MCV 90.6 fL (80.0-100.0); MEAN PLATELET VOLUME 8.7 fL (7.4-10.4); NEUTROPHIL ABS# 4.11 10x3/uL (1.56-6.13); NEUTROPHILS 68.9 % (40-80); RBC 2.67 10x6/uL (4.00-5.40); RDW 16.8 % (11.5-14.5)
[2020-09-04 09:18] LABS: ALKALINE PHOSPHATASE 90 U/L (30-120); ALT (SGPT) 18 U/L (10-68); CALCIUM 8.9 mg/dL (8.5-10.1); CHLORIDE - SERUM 102 mmol/L (98-107); CREATININE - SERUM 2.2 mg/dL (0.6-1.3); MAGNESIUM - SERUM 1.8 mg/dL (1.8-2.4); POTASSIUM - SERUM 3.9 mmol/L (3.5-5.1); SODIUM 136 mmol/L (136-145); UREA NITROGEN 67 mg/dL (7-18); eGFR NON AFRICAN AMERICAN 23 mL/min (90-120)
[2020-09-04 09:22] LABS: CALC OSMOLALITY 295 mosm/kg (275-300); GLUCOSE 196 mg/dL (74-106)
[2020-09-04 09:23] LABS: PLATELET COUNT 232 10x3/uL (130-400)
[2020-09-04 09:27] LABS: ALBUMIN 1.7 g/dL (3.4-5.0); CARBON DIOXIDE 28.8 mmol/L (21.0-32.0)
[2020-09-04 10:47] LABS: T4 THYROXINE 3.8 ug/dL (4.7-13.3)
[2020-09-04 15:13] VITALS: BP 171/68
--- NOTE | 2020-09-04 18:11 | NUR ---
I have reviewed this patient and I concur with the Shift Assessment completed by the Licensed Practical Nurse today this shift.
[2020-09-04 20:56] VITALS: BP 145/52
[2020-09-05 00:53] VITALS: BP 184/67
[2020-09-05 05:23] VITALS: BP 167/65
[2020-09-05 08:51] LABS: ALBUMIN 1.7 g/dL (3.4-5.0); ANION GAP 9.5 mmol/L (8-16); BILIRUBIN - TOTAL 0.27 mg/dL (0.2-1.3); CALCIUM 9.4 mg/dL (8.5-10.1); CARBON DIOXIDE 30.3 mmol/L (21.0-32.0); POTASSIUM - SERUM 3.8 mmol/L (3.5-5.1); PROTEIN - SERUM 7.2 g/dL (6.4-8.2)
[2020-09-05 09:43] VITALS: BP 171/57
[2020-09-05 11:38] LABS: BASOPHILS 0.6 % (0-2); EOSINOPHILS 1.7 % (0-7); HEMATOCRIT 22.9 % (36.0-48.0); LYMPHOCYTES 24.8 % (15-50); MCH 29.3 pg (26.0-34.0); MCHC 32.7 g/dL (31.0-37.0); MCV 89.5 fL (80.0-100.0); MEAN PLATELET VOLUME 7.2 fL (7.4-10.4); MONOCYTES 6.1 % (2-11); NEUTROPHILS 66.8 % (40-80); PLATELET COUNT 235 10x3/uL (130-400); RBC 2.56 10x6/uL (4.00-5.40); RDW 17.9 % (11.5-14.5); WBC 6.8 10x3/uL (4.8-10.8)
[2020-09-05 11:59] LABS: HEMOGLOBIN 7.5 g/dL (12-16)
--- NOTE | 2020-09-05 12:09 | NUR ---
DR. BARRIOS NOTIFIED OF HEMAGLOBIN 7.5. NO NEW ORDERS. WILL CONT. WITH DC.
[2020-09-05 12:17] VITALS: BP 162/49
--- NOTE | 2020-09-05 12:22 | NUR ---
REPORT CALLED TO [facility].
--- NOTE | 2020-09-05 14:44 | NUR ---
IV AND TELEMETRY DCD. DC PLANS GIVEN. UNDERSTANDING VOICED. ESCORTED TO CAR BY W/C.
--- NOTE | 2020-09-05 14:45 | NUR ---
IV AND TELEMETRY DCD. LEAVING FOR [facility] BY STRETCHER WITH EMS.
== END 2020-09-05 14:46 | DRG 640 ==
LOC: D.ER 21:52 → OBSVTIME 23:44 → D.M2 23:44
PROVIDERS: Family Medicine; Internal Medicine; Internal Medicine Nephrology; ADMIT Family Medicine; ATTEND Family Medicine
DX: E87.5 Hyperkalemia (principal); N17.0 Acute kidney failure with tubular necrosis; N18.4 Chronic kidney disease, stage 4 (severe); E11.8 Type 2 diabetes mellitus with unspecified complications; I10 Essential (primary) hypertension; J45.909 Unspecified asthma, uncomplicated; E11.22 Type 2 diabetes mellitus with diabetic chronic kidney disease; I12.9 Hypertensive chronic kidney disease with stage 1 through stage 4 chronic kidney disease, or unspecified chronic kidney disease; M32.9 Systemic lupus erythematosus, unspecified; Z87.820 Personal history of traumatic brain injury; K57.90 Diverticulosis of intestine, part unspecified, without perforation or abscess without bleeding; E11.40 Type 2 diabetes mellitus with diabetic neuropathy, unspecified; H40.9 Unspecified glaucoma; I69.318 Other symptoms and signs involving cognitive functions following cerebral infarction; F01.50 Vascular dementia, unspecified severity, without behavioral disturbance, psychotic disturbance, mood disturbance, and anxiety; D63.1 Anemia in chronic kidney disease; F41.9 Anxiety disorder, unspecified; E03.8 Other specified hypothyroidism; E06.3 Autoimmune thyroiditis; M89.49 Other hypertrophic osteoarthropathy, multiple sites; T56.0X1S Toxic effect of lead and its compounds, accidental (unintentional), sequela; M1A.10X0 Lead-induced chronic gout, unspecified site, without tophus (tophi); M06.9 Rheumatoid arthritis, unspecified; K59.01 Slow transit constipation; H91.90 Unspecified hearing loss, unspecified ear; Z74.01 Bed confinement status; R10.9 Unspecified abdominal pain

== ENCOUNTER → 2020-09-07 10:03 | Outpatient (CLI) | payer MEDICARE, MEDICAID ==
[2020-08-30 12:41] VITALS: BMI 26.2
[~2020-09-07 10:03] MED LIST changes: +ALBUTEROL SULF8.5 GM INH; +ASPIRIN EC325 MG PO; +CARDURA4 MG PO; +CLONIDINE1 EAC2 TOPICAL; +FLORASTOR250 MG PO; +FLUTICASONE PRO16 GM NASAL; +FOLIC ACID1 MG PO; +HYDRALAZINE HCL50 MG PO; +HYDROCHLOROTHIA50 MG PO; +METHOTREXATE2.5 MG PO; +MIDAMOR5 MG PO; +MIRALAX17 GM PO; +MYLANTA / MAALO30 ML PO; +NORMODYNE / TR100 MG PO; +ROCALTROL0.25 MCG PO; +SINGULAIR10 MG PO; +TORSEMIDE20 MG PO; +ULORIC80 MG PO; +ULTRAM50 MG PO; +XALATAN 0.0052.5 ML EACH EYE
[2020-09-07 11:57] LABS: BASOPHILS 0.5 % (0-2); EOSINOPHILS 0.9 % (0-7); HEMATOCRIT 24.1 % (36.0-48.0); LYMPHOCYTES 23.4 % (15-50); MCH 29.4 pg (26.0-34.0); MCHC 33.1 g/dL (31.0-37.0); MCV 88.9 fL (80.0-100.0); MEAN PLATELET VOLUME 7.3 fL (7.4-10.4); MONOCYTES 2.9 % (2-11); NEUTROPHILS 72.3 % (40-80); RBC 2.71 10x6/uL (4.00-5.40); RDW 17.5 % (11.5-14.5); WBC 7.4 10x3/uL (4.8-10.8)
[2020-09-07 12:32] LABS: ALBUMIN 1.7 g/dL (3.4-5.0); ANION GAP 11.9 mmol/L (8-16); BILIRUBIN - TOTAL 0.34 mg/dL (0.2-1.3); CALCIUM 8.9 mg/dL (8.5-10.1); CARBON DIOXIDE 27.2 mmol/L (21.0-32.0); CHOL - HDL RATIO 3.2 ratio (2.3-4.1); CREATININE - SERUM 1.7 mg/dL (0.6-1.3); LDL-HDL RATIO 1.7 ratio (1.5-3.5); POTASSIUM - SERUM 4.1 mmol/L (3.5-5.1); PROTEIN - SERUM 6.7 g/dL (6.4-8.2); THYROID STIMULATING HORMONE 5.46 uIU/mL (0.36-3.74)
[2020-09-07 12:53] LABS: PLATELET COUNT 302 10x3/uL (130-400)
== END | disposition home or self-care (01) ==
LOC: D.LABREF 10:03
PROVIDERS: ATTEND Family Medicine
DX: E11.29 Type 2 diabetes mellitus with other diabetic kidney complication (principal); D63.1 Anemia in chronic kidney disease; M81.0 Age-related osteoporosis without current pathological fracture

== ENCOUNTER → 2020-09-13 20:41 | Outpatient (CLI) | payer MEDICARE, MEDICAID ==
[2020-08-30 12:41] VITALS: BMI 26.2
[2020-09-13 21:30] LABS: BASOPHILS 0.4 % (0-2); EOSINOPHILS 0.4 % (0-7); HEMATOCRIT 28.6 % (36.0-48.0); HEMOGLOBIN 9.1 g/dL (12-16); MCH 28.7 pg (26.0-34.0); MCV 89.7 fL (80.0-100.0); MEAN PLATELET VOLUME 7.7 fL (7.4-10.4); MONOCYTES 8.9 % (2-11); NEUTROPHILS 75.3 % (40-80); RBC 3.19 10x6/uL (4.00-5.40); RDW 18.2 % (11.5-14.5); WBC 9.4 10x3/uL (4.8-10.8)
[2020-09-13 21:32] LABS: PLATELET COUNT 368 10x3/uL (130-400)
[2020-09-13 21:43] LABS: ALBUMIN 2.1 g/dL (3.4-5.0); C-REACTIVE PROTEIN 13.9 mg/dL (0.0-0.9); CREATININE - SERUM 1.8 mg/dL (0.6-1.3)
[2020-09-13 22:34] LABS: ERYTHROCYTE SEDIMENTATION RATE 104 mm/hr (0-30)
== END | disposition home or self-care (01) ==
LOC: D.LABREF 20:41
PROVIDERS: ATTEND Family Medicine
DX: M32.9 Systemic lupus erythematosus, unspecified (principal); E06.3 Autoimmune thyroiditis; D63.1 Anemia in chronic kidney disease; N18.4 Chronic kidney disease, stage 4 (severe)